=== PATIENT | female | born 1955 | race Caucasian/White ===

== ENCOUNTER 2022-07-11 16:46 | Observation (INO) | payer OTHER, SELFPAY ==
[2022-07-11] VITALS (14 sets, daily range): BP systolic 125–186; BP diastolic 68–101; PULSE 90–98; RESP 11–22; TEMP 36.3; O2SAT 93–100
--- NOTE | ~2022-07-11 | XR_ITS ---
Clinical Indication: Shortness of breath, cough AP and lateral views of the chest: Comparison: 05/23/2014 Findings: Questionable minimal right pleural effusion. Left lung clear. Cardiomediastinal silhouette is within normal limits. Bones and soft tissues are unremarkable. Impression: Possible minimal right pleural effusion. Reviewed, dictated and finalized at location . Impression: Possible minimal right pleural effusion.
--- NOTE | ~2022-07-11 | CT_ITS ---
CT ANGIOGRAM NECK AND HEAD History: Vertigo. Technique: Axial noncontrast imaging of the brain was performed. Serial spiral axial images through t he head and neck were then obtained during arterial phase IV injection of 100 cc of Omnipaque 350. 3- D postprocessing and MIP images were then reconstructed on the remote workstation. Dose reduction edison hnique was used on this scan by utilizing automated exposure control and iterative reconstruction edison hnique. The dose-length product (DLP) was 1648.59 mGy-cm. CTA neck findings: Bilateral vertebral arteries are patent. Bilateral common carotid, internal carot id, and external carotid arteries are patent. There is calcified plaque at the proximal bilateral int ernal carotid arteries, but no stenosis evident. The proximal right internal carotid artery demonstra patsy 0% stenosis relative to the normal distal artery lumen diameter. The proximal left internal carot id artery demonstrates 0% stenosis relative to the normal distal artery lumen diameter. CTA head findings: Distal vertebral arteries, basilar artery, and posterior cerebral arteries are pat ent. Distal internal carotid arteries, middle cerebral arteries, and anterior cerebral arteries are p atent. No large vessel occlusion. No stenosis or aneurysm. Axial noncontrast imaging of the brain is unremarkable. Impression: No significant abnormality seen. Reviewed, dictated and finalized at location . Impression: No significant abnormality seen.
--- NOTE | ~2022-07-11 | MR_ITS ---
EXAMINATION: MR venography brain DATE: 07/13/2022 10:32 INDICATION: Cerebral venous thrombosis. Vertigo. TECHNIQUE: Magnetic resonance venography (MRV) of the head was performed without intravenous contrast . COMPARISON: Brain MRI 07/12/2022, head CT 07/11/2022 FINDINGS: The internal cerebral veins, vein of Olvin, straight sinus, superior sagittal sinus, transv erse sinuses, and sigmoid sinuses are normal. IMPRESSION: 1. Normal exam. No thrombosis. Reviewed, dictated and finalized at location A.
--- NOTE | ~2022-07-11 | MR_ITS ---
EXAMINATION: MR brain/brain stem wo/w con DATE: 07/12/2022 13:34 INDICATION: vertigo TECHNIQUE: Magnetic resonance imaging (MRI) of the brain and brainstem was performed 17 mL MultiHance intravenous contrast. Sequences included sagittal and axial T1-weighted SE, axial diffusion-weighted FS EPI ASSET, axial T2*-weighted GRE, axial T2-weighted FLAIR Propeller, and axial T2-weighted Prope ller. Postcontrast axial and coronal T1-weighted SE was obtained. Apparent diffusion coefficient (ADC ) maps were created. COMPARISON: CTA brain carotid 07/11/2022 FINDINGS: No abnormal restricted diffusion to suggest acute ischemic infarct. No MRI evidence of hemorrhage or extra-axial collection. No suspicious foci of susceptibility to suggest prior intraparenchymal hemorr sandro. Scattered foci of white matter hyperintensity, likely representing mild small vessel ischemic d isease. No evidence of advanced or lobar predominant parenchymal volume loss. The basilar cisterns ar e patent. Abnormal flow void in the distal aspect of the left transverse sinus and the left sigmoid s inus. Remaining flow voids are preserved. Paranasal sinuses are within normal limits. Globes and orbi irma contents are within normal limits. IMPRESSION: Abnormal flow voids in the distal aspect of the left transverse sinus and the left sigmoid sinus, wit hout associated brain parenchymal changes, may represent nonocclusive subacute/chronic cerebral venou s sinus thrombosis versus flow artifact. Consider MRV with contrast for further evaluation. Results reported telephonically to Julieth Morrissey RN by Dr. Ordonez at 3:55 PM on 07/12/2022. Reviewed, dictated and finalized at location K. IMPRESSION: Abnormal flow voids in the distal aspect of the left transverse sinus and the l eft sigmoid sinus, without associated brain parenchymal changes, may represent nonocclusive subacute/chronic cerebral venous sinus thrombosis versus flow elke fact. Consider MRV with contrast for further evaluation. Results reported telephonically to Julieth Morrissey RN by Dr. Ordonez at 3:55 PM on 07/12/2022.
--- NOTE | 2022-07-11 18:41 | ECG_ITS ---
Measurements Intervals [place] Rate: 94 P: 40 VT: 182 QRS: -5 QRSD: 95 T: 12 QT: 374 QTc: 470 Interpretive Statements SINUS RHYTHM NORMAL ELECTROCARDIOGRAM NO PREVIOUS ECG AVAILABLE FOR COMPARISON Electronically Signed On 07-12-2022 7:23:44 CDT by Chacorta Wayne M.D.
[2022-07-11 19:02] LABS: Hematocrit 44.1 % (37.0-47.0); Hemoglobin 14.5 g/dL (12.0-15.0); Mean Corpuscular HGB Conc 32.9 g/dl (32-36); Mean Corpuscular Hemoglobin 28.9 pg (26-34); Mean Corpuscular Volume 87.8 fl (80-100); Mean Platelet Volume 9.6 fl (7.4-10.4); Platelet Count Result 255 k/mm3 (150-375); Red Blood Count 5.02 M/mm3 (4.2-5.4); Red Cell Distribution Width 12.4 % (11.5-14.5); White Blood Count 12.3 K/mm3 (4.5-10.0)
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
[2022-07-11 19:13] LABS: Alanine Aminotransferase 29 U/L (6-35); Albumin Level 4.8 g/dL (3.5-5.1); Alkaline Phosphatase 118 U/L (38-126); Anion Gap 8 mmol/L (8-16); Aspartate Amino Transferase 24 U/L (14-36); Bilirubin,Total 0.5 mg/dL (0.2-1.3); Blood Urea Nitrogen 17 mg/dL (7-17); Calcium 9.8 mg/dL (8.4-10.2); Carbon Dioxide 27 mmol/L (22-30); Chloride 98 mmol/L (98-107); Estimated CRCL calculation 111 ml/min; Estimated Glomerular Filt Rate > 60; Glucose 297 mg/dL (65-110); Lipase 52 U/L (23-300); Potassium 4.2 mmol/L (3.4-5.0); Sodium 133 mmol/L (137-145)
[2022-07-11] MEDS: FAMOTIDINE 20 MG/2 ML VIAL IV PUSH (19:20)
[2022-07-11] MEDS: ONDANSETRON INJ 4 MG/2 ML VIAL IV PUSH (19:20)
[2022-07-11] MEDS: SODIUM CHLORIDE 0.9% IV 1,000 ML 999 ML IV CONT (19:20)
[2022-07-11 19:36] LABS: Band Neutrophils Percent 4 % (0-6); Lymphocytes Absolute Manual 0.73 K/mm3 (1.1-4.5); Monocytes Absolute Manual 0.12 K/mm3 (0.1-0.90); Monocytes Percent Manual 1 % (3-9); Neutrophils Absolute Manual 11.43 K/mm3 (1.7-7.2); Neutrophils Percent Manual 89 % (46-73); Platelet Estimate Adequate (Adequate); Total Cells Counted 100
[2022-07-11 19:37] LABS: Schistocytes None Seen (NORMAL)
[2022-07-11] MEDS: MECLIZINE HCL 25 MG TABLET PO (19:57)
[2022-07-11 20:37] LABS: Influenza A QL RT-PCR Negative (Negative); Influenza B QL RT-PCR Negative (Negative); SARS-CoV-2 RNA PCR Negative (Negative)
[2022-07-11] MEDS: PROCHLORPERAZINE EDISYLATE 10 MG/2 ML VIAL IV PUSH (20:42)
[2022-07-11] MEDS: LORazepam INJ (*CRX) 2 MG/ML VIAL 1 MG IV PUSH (21:07)
[2022-07-12] VITALS (30 sets, daily range): BP systolic 122–188; BP diastolic 63–100; PULSE 78–97; RESP 14–19; TEMP 36.2–37; O2SAT 89–100; BMI 30.4
--- NOTE | 2022-07-12 | ECHO_ITS ---
Patient Info Name: Ada Hernández Age: 67 years : 1955 Gender: Female Ht: 68 in Wt: 199 lbs BSA: 2.11 m2 HR: 78 bpm BP: 188 / 100 mmHg Heart Rhythm: Sinus Rhythm Technical Quality: Fair Exam Date: 07/12/2022 12:24 PM Exam Location: [facility] Pulmonary Exam Room: 330 Patient Status: Inpatient Admit Date: 07/12/2022 Staff Ordering Physician: Adwoa Mcneil APRN Sheet Metal Installer: Jody Castillo RDCS Attending Provider: Madonna Souza DO Referring Physician: Tarun MINER; Exam Type: CA echo doppler w bubble study Study Info Indications - DIZZINESS UNCONTROLLED HTN POSSIBLE STROKE Complete two-dimensional, color flow and Doppler transthoracic echocardiogram is performed with agitated saline. Contrast/Agitated Saline Contrast/Ag. Saline: Agitated Saline Amount: 20.00 ml Existing IV Access: Yes IV Access Condition: patent with no signs of infiltration Summary 1. Mild left ventricular hypertrophy with normal systolic function and grade 1 diastolic noncompliance. 2. Mildly calcified mitral valve annulus. 3. Agitated saline contrast demonstrated no intracardiac shunt. Left Ventricle Left ventricular chamber dimension is normal. Left ventricular systolic function is normal, estimated at 60-65%. There is mild concentric increased left ventricular wall thickness. The left ventricular diastolic function is grade I diastolic dysfunction. Right Ventricle Right ventricular chamber dimension is normal. Left Atria Left atrial chamber dimension is normal. Right Atria Right atrial chamber dimension is normal. Atrial Septum Intact interatrial septum visualized by agitated saline imaging. Aortic Valve The aortic valve is normal. Pulmonic Valve The pulmonic valve is normal. Mitral Valve The mitral valve has normal leaflets. The mitral valve annulus is mildly calcified. Tricuspid Valve The tricuspid valve leaflets are normal. Pericardium/Pleural The pericardium appears normal. Aorta The aortic root size at the sinus of Valsalva is normal. Left Ventricular Outflow Tract Name Value Normal LVOT 2D LVOT Diameter 2.0 cm LVOT Doppler LVOT Peak Gradient 6 mmHg LVOT Mean Gradient 4 mmHg LVOT VTI 27 cm LVOT VTI/AV VTI Ratio 0.8 LVOT Stroke Volume 82 ml LVOT CO 17.6 l/min LVOT CI 8.3 l/min/m2 Pulmonic Valve Name Value Normal PV Doppler PV Peak Gradient 4 mmHg Mitral Valve Name Value Normal
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
--- NOTE | 2022-07-12 05:10 | PC.NURSE ---
Patient arrived on 3 Med-Surg at 05:00
[2022-07-12 06:51] LABS: Glucose Point of Care 251 mg/dl (65-105)
[2022-07-12 08:14] LABS: Glucose Point of Care 270 mg/dl (65-105)
[2022-07-12] MEDS: INSULIN ASPART (*BKC) 100 UNITS/ML SUB-Q ×3 (08:15→16:56)
[2022-07-12] MEDS: LORATADINE 10 MG TABLET PO (08:16)
[2022-07-12] MEDS: PIOGLITAZONE HCL 30 MG TABLET PO (08:16)
[2022-07-12] MEDS: metFORMIN HCL 500 MG TABLET 1000 MG PO ×2 (08:16→16:55)
[2022-07-12] MEDS: ASPIRIN 81 MG ENTERIC TABLET PO (08:16)
[2022-07-12] MEDS: ESCITALOPRAM OXALATE 10 MG TABLET PO (08:16)
[2022-07-12] MEDS: PANTOPRAZOLE 40 MG TABLET PO (08:16)
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
[2022-07-12] MEDS: guaiFENesin 12 HR 600 MG TABCR 1200 MG PO ×2 (09:30→20:55)
[2022-07-12 09:41] LABS: CRP 0.8 mg/dL (<1.0); Cholesterol 214 mg/dL (0-200); HDL Direct 37 mg/dL; Triglycerides 355 mg/dL (<150)
[2022-07-12] MEDS: MECLIZINE HCL 25 MG TABLET PO ×2 (09:46→17:48)
[2022-07-12 09:48] LABS: LDL Cholesterol Direct 128 mg/dL
[2022-07-12 11:00] LABS: Hemoglobin A1C 8.6 % (<5.7)
[2022-07-12 11:37] LABS: Glucose Point of Care 240 mg/dl (65-105)
[2022-07-12] MEDS: LOSARTAN POTASSIUM 50 MG TABLET PO (13:41)
[2022-07-12 16:05] LABS: Folic Acid 15.9 ng/mL (2.76->20)
[2022-07-12 16:39] LABS: Glucose Point of Care 218 mg/dl (65-105)
[2022-07-12] MEDS: ACETAMINOPHEN 325 MG TABLET 650 MG PO (19:09)
[2022-07-12] MEDS: MONTELUKAST SODIUM 10 MG TABLET PO (20:55)
[2022-07-12] MEDS: SIMVASTATIN 20 MG TABLET PO (20:55)
[2022-07-12 21:34] LABS: Glucose Point of Care 194 mg/dl (65-105)
[2022-07-13] VITALS (9 sets, daily range): BP systolic 144–171; BP diastolic 74–88; PULSE 81–98; RESP 14–16; TEMP 36.8; O2SAT 95–96
[2022-07-13] MEDS: ACETAMINOPHEN 325 MG TABLET 650 MG PO (05:10)
[2022-07-13] MEDS: ONDANSETRON INJ 4 MG/2 ML VIAL IV PUSH (05:10)
[2022-07-13 06:39] LABS: Hematocrit 38.5 % (37.0-47.0); Mean Corpuscular HGB Conc 31.2 g/dl (32-36); Mean Corpuscular Hemoglobin 28.4 pg (26-34); Mean Platelet Volume 9.4 fl (7.4-10.4); Platelet Count Result 209 k/mm3 (150-375); Red Blood Count 4.23 M/mm3 (4.2-5.4); White Blood Count 6.5 K/mm3 (4.5-10.0)
[2022-07-13 06:51] LABS: Alanine Aminotransferase 23 U/L (6-35); Albumin Level 3.7 g/dL (3.5-5.1); Alkaline Phosphatase 82 U/L (38-126); Anion Gap 5 mmol/L (8-16); Aspartate Amino Transferase 24 U/L (14-36); Bilirubin,Total 0.5 mg/dL (0.2-1.3); Blood Urea Nitrogen 17 mg/dL (7-17); Calcium 8.8 mg/dL (8.4-10.2); Carbon Dioxide 29 mmol/L (22-30); Chloride 101 mmol/L (98-107); Estimated CRCL calculation 90 ml/min; Estimated Glomerular Filt Rate > 60; Glucose 197 mg/dL (65-110); Potassium 3.7 mmol/L (3.4-5.0); Sodium 135 mmol/L (137-145)
[2022-07-13 07:21] LABS: INR 1.1; Prothrombin Time 13.7 Seconds (11.1-14.7)
[2022-07-13 07:22] LABS: Partial Thromboplastin Time 23.3 SECONDS (22.3-36.8)
[2022-07-13 08:04] LABS: Glucose Point of Care 195 mg/dl (65-105)
[2022-07-13] MEDS: guaiFENesin 12 HR 600 MG TABCR 1200 MG PO ×2 (08:17→21:19)
[2022-07-13] MEDS: PANTOPRAZOLE 40 MG TABLET PO (08:18)
[2022-07-13] MEDS: LOSARTAN POTASSIUM 50 MG TABLET PO ×2 (08:18→12:07)
[2022-07-13] MEDS: ASPIRIN 81 MG ENTERIC TABLET PO (08:18)
[2022-07-13] MEDS: LORATADINE 10 MG TABLET PO (08:18)
[2022-07-13] MEDS: ESCITALOPRAM OXALATE 10 MG TABLET PO (08:18)
[2022-07-13] MEDS: PIOGLITAZONE HCL 30 MG TABLET PO (08:18)
[2022-07-13] MEDS: metFORMIN HCL 500 MG TABLET 1000 MG PO ×2 (08:18→16:46)
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
[2022-07-13 11:55] LABS: Glucose Point of Care 186 mg/dl (65-105)
[2022-07-13] MEDS: INSULIN ASPART (*BKC) 100 UNITS/ML SUB-Q (16:48)
[2022-07-13 16:59] LABS: Glucose Point of Care 201 mg/dl (65-105)
[2022-07-13] MEDS: MONTELUKAST SODIUM 10 MG TABLET PO (21:19)
[2022-07-13] MEDS: ATORVASTATIN 40 MG TABLET PO (22:01)
[2022-07-14] VITALS: PULSE 83
[2022-07-14 04:00] VITALS: PULSE 88
[2022-07-14] MEDS: ACETAMINOPHEN 325 MG TABLET 650 MG PO (04:23)
[2022-07-14 06:00] VITALS: BP 169/90; PULSE 97; RESP 16; TEMP 36.5; O2SAT 97
[2022-07-14 08:00] VITALS: PULSE 76
[2022-07-14 08:21] LABS: Glucose Point of Care 201 mg/dl (65-105)
[2022-07-14] MEDS: INSULIN ASPART (*BKC) 100 UNITS/ML SUB-Q (08:27)
[2022-07-14] MEDS: ASPIRIN 81 MG ENTERIC TABLET PO (08:28)
[2022-07-14] MEDS: PANTOPRAZOLE 40 MG TABLET PO (08:28)
[2022-07-14] MEDS: guaiFENesin 12 HR 600 MG TABCR 1200 MG PO (08:28)
[2022-07-14] MEDS: PIOGLITAZONE HCL 30 MG TABLET PO (08:28)
[2022-07-14] MEDS: ESCITALOPRAM OXALATE 10 MG TABLET PO (08:29)
[2022-07-14] MEDS: LORATADINE 10 MG TABLET PO (08:29)
[2022-07-14] MEDS: LOSARTAN POTASSIUM 100 MG TABLET PO (08:29)
[2022-07-14] MEDS: metFORMIN HCL 500 MG TABLET 1000 MG PO (08:29)
[2022-07-14] MEDS: MECLIZINE HCL 25 MG TABLET PO ×2 (09:25→12:36)
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
[2022-07-14 11:39] LABS: Glucose Point of Care 161 mg/dl (65-105)
--- NOTE | 2022-07-14 15:27 | PCCCNOTE ---
On 07/14/22, the student, [Tamera Mccauley ], provided care and completed [facility] documentation on this patient. I have reviewed the student's documentation and agree with the findings.
[2022-07-16 20:00] LABS: Homocysteine 7.7 umol/L (<10.4)
== END 2022-07-14 12:55 | disposition home or self-care (01) ==
LOC: ANHED 07-12 04:07 → ANH3MEDSUR 07-12 05:10
PROVIDERS: Emergency Medicine; Nurse Practitioner Family; Psychiatry & Neurology Neurology; Admitting Provider Internal Medicine; Emergency Provider Emergency Medicine; Visit Provider Internal Medicine
DX: R42 Dizziness and giddiness (principal); E11.65 Type 2 diabetes mellitus with hyperglycemia; E11.40 Type 2 diabetes mellitus with diabetic neuropathy, unspecified; J32.9 Chronic sinusitis, unspecified; I11.9 Hypertensive heart disease without heart failure; J30.9 Allergic rhinitis, unspecified; R51.9 Headache, unspecified; R06.02 Shortness of breath; R05.9 Cough, unspecified; Z20.822 Contact with and (suspected) exposure to COVID-19; E78.5 Hyperlipidemia, unspecified; H93.19 Tinnitus, unspecified ear; K21.9 Gastro-esophageal reflux disease without esophagitis; G25.81 Restless legs syndrome; E66.3 Overweight; Z68.33 Body mass index [BMI] 33.0-33.9, adult; F10.90 Alcohol use, unspecified, uncomplicated; Z87.891 Personal history of nicotine dependence; Z79.84 Long term (current) use of oral hypoglycemic drugs; Z79.899 Other long term (current) drug therapy; Z83.3 Family history of diabetes mellitus
CPT/HCPCS: 36415; 70496; 70498; 70544; 70553; 71046; 80053; 80061; 82607; 82746; 82948; 83036; 83090; 83690; 84145; 85025; 85027; 85610; 85730; 86140; 87636; 93005; 93306; 96361; 96365; 96375; 96376; 97116; 97162; 97530; 99285; A9270; A9577; G0378; J0131; J0780; J1815; J2060; J2405; J7030; Q9967

== ENCOUNTER 2023-04-02 17:22 | Emergency (ER) | payer OTHER, SELFPAY ==
[2023-04-02] VITALS (7 sets, daily range): BP systolic 155–244; BP diastolic 84–115; PULSE 103–130; RESP 12–20; TEMP 36.7; O2SAT 95–96
--- NOTE | ~2023-04-02 | XR_ITS ---
EXAMINATION: XR chest 2V DATE: 04/02/2023 22:05 INDICATION: Cough and shortness of breath TECHNIQUE: PA and lateral views of the chest were obtained. COMPARISON: Chest radiograph dated 07/11/2022 FINDINGS: The lungs remain clear with no focal airspace opacities, pulmonary edema, pleural effusion or pneumot horax. The cardiomediastinal silhouette is normal. Mild thoracic spondylosis. IMPRESSION: 1. No acute cardiopulmonary disease. Reviewed, dictated and finalized at location A. ING SECRETARY
[2023-04-02 18:56] LABS: Strep Group A RT-PCR NOT DETECTED (Negative)
[2023-04-02 21:18] LABS: Influenza A QL RT-PCR Negative (Negative); Influenza B QL RT-PCR Negative (Negative); RSV RNA, RT-PCR Negative (Negative); SARS-CoV-2 RNA PCR Negative (Negative)
[2023-04-02] MEDS: SODIUM CHLORIDE 0.9% IV 1,000 ML 999 ML IV CONT (22:14)
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
[2023-04-02] MEDS: IPRATROPIUM 0.5 MG/ALBUTEROL SULFATE 2.5 MG AMPUL.NEB 3 ML INHALATION (23:18)
[2023-04-02] MEDS: ACETAMINOPHEN 500 MG TABLET 1000 MG PO (23:32)
[2023-04-02] MEDS: methylPREDNISolone SOD SUCC 125 MG VIAL IV PUSH (23:32)
[2023-04-02] MEDS: LOSARTAN POTASSIUM 100 MG TABLET PO (23:33)
--- NOTE | 2023-04-03 00:15 | PC.NURSE ---
Pt feeling better after breathing treatment and other medications. Ambulated to restroom without assistance.
== END 2023-04-03 00:29 | disposition home or self-care (01) ==
PROVIDERS: Emergency Medicine; Emergency Provider Physician Assistant
DX: J40 Bronchitis, not specified as acute or chronic (principal); Z20.822 Contact with and (suspected) exposure to COVID-19; E11.42 Type 2 diabetes mellitus with diabetic polyneuropathy; I10 Essential (primary) hypertension; K21.9 Gastro-esophageal reflux disease without esophagitis; J32.9 Chronic sinusitis, unspecified; G25.81 Restless legs syndrome; Z90.710 Acquired absence of both cervix and uterus; Z87.891 Personal history of nicotine dependence; Z79.84 Long term (current) use of oral hypoglycemic drugs; Z79.82 Long term (current) use of aspirin
CPT/HCPCS: 71046; 87637; 87651; 94640; 96361; 96374; 99284; A9270; J2930; J7030